=== PATIENT | male | born 1995 | race Caucasian/White ===

== ENCOUNTER 2019-09-24 21:57 | Emergency (ER) | payer OTHER ==
[~2019-09-24] VITALS: Ht 182.9 cm; Wt 72.6 kg
--- NOTE | 2019-09-24 22:10 | NUR ---
[id number] FROM THE [facility]OTEST. TO ER BED 12. AAOX4. NOT IN RESP DISTRESS, BREATHING EVEN AND UNLBAORED. CAME IN FOR MID STERNAL CHEST PAIN NON RADIATING X 3 HRS AGO SHARP IN NATURE. DENIES ANY DRUG USE. PT IS PLACE ON MONITOR. PL IS NOTED WITH FACIAL [place] FOR PROTESTING FOR THE PAST FOUR DAYS. MD WAS MADE AWARE. ORDERS RECEIVED. URINE COLLECTED AND SENT TO LAB
--- NOTE | 2019-09-24 22:20 | NUR ---
AT BEDSIDE FOR EVAL
[2019-09-24] MEDS ORDERED: IBUPROFEN 600 MG TABLET PO ONE ×2 (23:17→23:30)
--- NOTE | 2019-09-24 23:23 | NUR ---
Patient discharged to home in stable condition. Written and verbal after care instructions given. Patient verbalizes understanding of instruction. Pt ambulatory with a steady gait
[2019-09-24 23:34] VITALS: BP 133/81
== END 2019-09-24 23:34 | disposition home or self-care (01) ==
LOC: ER 21:59
DX: R07.89 Other chest pain (principal); F17.200 Nicotine dependence, unspecified, uncomplicated; Z88.0 Allergy status to penicillin; Z88.1 Allergy status to other antibiotic agents
CPT/HCPCS: 71045-TC; 80305